=== PATIENT | female | born 1975 | race Caucasian/White ===

== ENCOUNTER 2017-01-04 19:41 | Emergency (ER) | payer OTHER ==
[2017-01-04 19:01] LABS: INFLUENZA A POS (NEG)
[2017-01-04 19:02] LABS: INFLUENZA B NEG (NEG)
[~2017-01-04 19:41] MED LIST: AMBIEN PO; AMITRIPTYLINE H25 MG PO; AMITRIPTYLINE H75 MG PO; CITRATE OF MAG300 ML PO; COLACE PO; FAMOTIDINE PO; FIORICET W/CODE1 CAP PO; FLEXERIL PO; IBUPROFEN800 MG PO; LEVAQUIN PO; LORTAB 7.5-3251 EACH PO; MOBIC PO; PHENERGAN PO; PRISTIQ PO; PROZAC PO; ROBAXIN500 MG PO; VICODIN PO; WELLBUTRIN XL PO
== END 2017-01-04 19:51 | disposition home or self-care (01) ==
LOC: SED 19:41
PROVIDERS: Physician Assistant
DX: J10.1 Influenza due to other identified influenza virus with other respiratory manifestations (principal); Z88.0 Allergy status to penicillin; Z88.5 Allergy status to narcotic agent
CPT/HCPCS: 87651; 87804; 99283